=== PATIENT | female | born 1950 | race American Indian/Alaskan Native ===

== ENCOUNTER 2017-05-12 07:52 | Outpatient (CLI) | payer MEDICARE ==
--- NOTE | 2017-05-12 15:32 | Mammography Report ---
BONE DEXA:05/12/17 07:52:00 CLINICAL: Postmenopausal. No comparison. TECHNIQUE: Two site bone DEXA performed on an Hologic scanner. FINDINGS: The average BMD of the lumbar spine L1-L4 is 0.890g/cm squared with a T-score of -2.4 and a Z-score of -0.1. The average BMD of the 0.937 is g/cm squared with a T-score of -0.6 and a Z-score of +0.5. The left femoral neck BMD is 0.791g/cm squared with a T score of -1.1 and a Z score of 0.3. IMPRESSION: WHO classification: Osteopenia with increased fracture risk based on both lumbar spine and left hip measurements. RECOMMENDATION: Clinical correlation and routine screening. DEFINITIONS: BMD = Bone Mineral Density T-score = BMD related to mean peak bone mass of young adult (mean expressed in Standard Deviation) Z-score = Age matched BMD expressed in SD World Health Organization (WHO) Diagnostic Criteria Normal T-score > -1 SD Osteopenia T-score between -1 and -2.4 SD Osteoporosis T-score -2.5 SD or below NOTE: BMD is not the only risk factor for fracture. One should also consider factors such as the patient's age, risk of falling, previous osteoporotic fracture, family history of osteoporotic fractures, current smoker, and low body weight. Z-scores are not calculated if >80 years of age.
== END 2017-05-12 07:53 | disposition home or self-care (01) ==
LOC: SPVWC 07:52
PROVIDERS: ATTEND Family Medicine
DX: M85.88 Other specified disorders of bone density and structure, other site (principal); M81.0 Age-related osteoporosis without current pathological fracture; Z78.0 Asymptomatic menopausal state
CPT/HCPCS: 77080

== ENCOUNTER 2017-10-05 08:31 | Day surgery (SDC) | payer MEDICARE ==
[~2017-10-05 08:31] MED LIST: TETRACAINE 0.5% OD PRN
--- NOTE | 2017-10-05 10:17 | Anesthesia Consultation ---
Anesthesia Consult and Med Hx Date of service: 10/05/17 - Airway Anesthetic Teeth Evaluation: Good, Caps ROM Head & Neck: Adequate Mental/Hyoid Distance: Adequate Mallampati Class: Class II Intubation Access Assessment: Probably Good - Pulmonary Exam CTA: Yes - Cardiac Exam Cardiac Exam: RRR - Pre-Operative Health Status ASA Pre-Surgery Classification: ASA2 Proposed Anesthetic Plan: MAC - Pulmonary Hx Smoking: Yes (QUIT 2006) - Cardiovascular System Hx Hypertension: Yes (OVER 10 YEARS) - Central Nervous System Hx Psychiatric Problems: No - Gastrointestinal Hx Gastroesophageal Reflux Disease: Yes - Other Systems Hx Alcohol Use: No Hx Substance Use: No Hx Cancer: Yes (breast) - Additional Comments Anesthesia Medical History Comments: right arm precautions, OA
--- NOTE | 2017-10-05 10:17 | Anesthesia Day of Surgery ---
Anesthesia Day of Surgery - Day of Surgery Patient Examined: Yes Patient H&P Reviewed: Yes Patient is NPO: Yes
[2017-10-05] MEDS: AK-Dilate OD SCH ×3 (10:44→11:04)
[2017-10-05] MEDS: VIGAMOX OD SCH ×3 (10:45→11:04)
[2017-10-05] MEDS: MYDRIACYL OD SCH ×3 (10:46→11:04)
[2017-10-05] MEDS ORDERED: SUBLIMAZE ONE ×2 (11:35)
[2017-10-05] MEDS ORDERED: VERSED ONE ×2 (11:35)
--- NOTE | 2017-10-05 12:12 | Operative Report ---
Operative Report Operative Report: PATIENT'S NAME: DATE OF : DATE OF SURGERY: 10/05/2017 PREOPERATIVE DIAGNOSIS: Cataract right eye POSTOPERATIVE DIAGNOSIS: Same OPERATIVE PROCEDURE: Phacoemulsification with intraocular lens implantation, right eye SURGEON: Shahrzad Borjas M.D. VICTIM WITNESS ADMINISTRATOR SURGEON: Mio Lens: [id number] 21.5 D ANESTHESIA: Monitored anesthesia care in combination with topical and intracameral anesthesia because of the established specific risk of reflux, arrhythmias, or anxiety attacks associated with ocular manipulation, as well as the difficulty of the greenkeeper to manage such potentially catastrophic events while simultaneously attempting to complete the surgical procedure and was deemed necessary for the patient's safety to have an Data Compiler present during the procedure whenever possible. An Data Compiler was utilized to regulate the intravenous sedation of the patient so the patient was cooperative yet not asleep in order for the patient to successfully maintain fixation of the eye on the operating light of the microscope. COMPLICATIONS: No surgical complications No blood loss. ALLERGIES: N known drug allergies PROGNOSIS: Excellent INDICATIONS FOR SURGERY: The patient is undergoing surgery in the hopes of eliminating or improving these visual difficulties. PROCEDURE: After arriving at the surgery center, the patient was given topical anesthetic and dilating drops, as noted in the record. The patient was then taken into the operating room and given more anesthetic drops. The eyelids , lashes, and lid margins were scrubbed with Betadine solution, and the patient was draped. The Nurse Data Compiler administered IV sedation and monitored the patient during the procedure. The eye was then fixated with a 0.12, and a stab incision was made in the peripheral clear cornea into the anterior chamber. This was made on my left side. Viscoelastic was next used to fill the anterior chamber. The eye was once again fixated with the 0.12 forceps and a keratome was used make an incision in clear cornea peripherally on my right hand side temporally. The capsule forceps were used to open the central anterior capsule and then make a continuous round capsulotomy. Hydrodissection was carried out utilizing a cannula and balanced salt solution to delineate the cortical material from the capsule and the nucleus from the cortical material. The phaco tip was introduced into the eye and used to remove the anterior cortical material in the area of the capsulotomy. Then the phaco tip was buried into the nucleus, and a chopping instrument was introduced into the eye and used to provide countertraction in the nucleus between this instrument and the phaco tip fracturing the nucleus. This procedure was repeated multiple times, providing multiple small segments of the lens, and then the phaco tip was used to remove each of these segments. An I/A tip was then used to remove the remaining cortex. The anterior chamber was refilled with viscoelastic. An one-piece, acrylic intraocular lens was then placed into an inserting cartridge. The tip of the inserting cartridge was introduced into the keratome incision and into the anterior chamber. The implant was gently advanced through the cartridge and into the eye, where it unfolded, and both haptics were placed in the capsular bag, where it centered nicely and appeared to be well fixated. After placement of the intraocular lens, the I~and~A handpiece was placed back into the eye and used to remove the viscoelastic, including viscoelastic that was behind the optic of the intraocular lens. The anterior chamber was then filled with balanced salt solution, and hydration of the wound was used to cause swelling of the wound and more appropriate watertight closure. When the wound was found to be firm, the patient was asked to comment on how bright the light was. If there was no light perception at all or if the light was substantially dimmer than during the rest of the surgery, the amount of fluid in the eye was decompressed to lower the intraocular pressure until the patient could see the bright light again. This was done to avoid any damage or decreased blood flow to the optic nerve. MEDICATIONS APPLIED AT END OF SURGERY: One drop of Pred Forte and Vigamox The patient was given a shield to wear at night and was instructed not to rub or push on the eye. DISCHARGE SUMMARY: The patient was released in stable condition. The patient and those with the patient were given a written sheet of postoperative instructions and counseling on any abnormal laboratory studies. The patient is to see us tomorrow for follow-up in the office and is to call immediately for any difficulties. Shahrzad Borjas M.D. Date
--- NOTE | 2017-10-05 12:13 | Short Stay Summary ---
Short Stay Documentation Date of service: 10/05/17 - History H&P: obtained from office - Allergies and Medications Current Medications: Allergies No Known Allergies Allergy (Verified 10/04/17 18:42) Home Medications Medication Instructions Recorded Confirmed Last Taken Type Losartan Potassium 50 mg PO DAILY 10/04/17 10/04/17 Unknown History Omeprazole 20 mg PO DAILY 10/04/17 10/04/17 Unknown History Simvastatin 40 mg PO DAILY 10/04/17 10/04/17 Unknown History Tolterodine [Detrol LA] 4 mg PO QDAY 10/04/17 10/04/17 Unknown History Triamter/Hctz 37.5-25 mg 1 tab PO QDAY 10/04/17 10/04/17 Unknown History [Maxzide-25] Active Medications Acetazolamide (Diamox) 500 mg PO ONCE ONE Stop: 10/05/17 12:12 Moxifloxacin HCl (Vigamox) 1 drops OD Q5MIN ILA Stop: 10/07/17 06:01 Last Admin: 10/05/17 11:04 Dose: 1 drops Phenylephrine HCl (Ak-Dilate) 1 drops OD Q5MIN ILA Stop: 10/07/17 06:01 Last Admin: 10/05/17 11:04 Dose: 1 drops Prednisolone Acetate (Pred Forte 1%) 1 drops OD QID ILA Tetracaine HCl (Tetracaine 0.5%) 1 drops OD Q5M PRN PRN Reason: Analgesia Last Admin: 10/05/17 10:44 Dose: 1 drops Tropicamide (Mydriacyl) 1 drops OD Q5MIN ILA Stop: 10/07/17 06:01 Last Admin: 10/05/17 11:04 Dose: 1 drops - Brief post op/procedure progress note Date of procedure: 10/05/17 Pre-op diagnosis: cataract right eye Post-op diagnosis: same Procedure: Phacoemulsification with intraocular lens insertion right eye Anesthesia: MAC, local Surgeon: YNES ROBERSON Estimated blood loss: none Pathology: none Condition: stable - Disposition Condition at discharge: Good Disposition: DC-01 TO HOME OR SELFCARE - Discharge Diagnoses (1) Nuclear sclerosis of right eye Status: Resolved Short Stay Discharge Plan Follow up with: DOLLY CARR MD [Primary Care Provider] - 7 Days
[2017-10-05] MEDS ORDERED: DIAMOX ONE ×2 (12:43)
[2017-10-05] MEDS ORDERED: PRED FORTE 1% ONE ×2 (12:43)
[2017-10-05] MEDS: DIAMOX PO ONE ×2 (12:47→18:36)
[2017-10-05] MEDS ORDERED: PRED FORTE 1% OD SCH (14:00)
--- NOTE | 2017-10-05 17:24 | Post Anesthesia Evaluation ---
- Post Anesthesia Evaluation Patient Participated: Yes Airway Patent: Yes Stable Respiratory Function: Yes Nausea/Vomiting: No Temp > 96.8F: Yes Pain Manageable: Yes Adequeate Hydration: Yes Anesthesia Complications: No
[2017-10-05 18:24] VITALS: BP 121/79
== END 2017-10-05 13:15 | disposition home or self-care (01) ==
LOC: OR 08:31
DX: H26.9 Unspecified cataract (principal); I10 Essential (primary) hypertension; M19.90 Unspecified osteoarthritis, unspecified site; K21.9 Gastro-esophageal reflux disease without esophagitis; E66.9 Obesity, unspecified; Z68.32 Body mass index [BMI] 32.0-32.9, adult; Z85.3 Personal history of malignant neoplasm of breast; Z87.891 Personal history of nicotine dependence
CPT/HCPCS: 66984; J2250; J3010; V2632